=== PATIENT | male | born 1990 | race Caucasian/White ===

== ENCOUNTER 2019-12-23 14:13 | Emergency (ER) | payer OTHER, SELFPAY ==
--- NOTE | ~2019-12-23 | XR_ITS ---
EXAMINATION: XR foot LT min 3V EXAM DATE: 12/23/2019 16:33 INDICATION: Left foot pain, swelling, insect bite at metatarsals. TECHNIQUE: Left foot dorsoplantar, lateral and oblique projections obtained and reviewed. There is n o prior study for comparison. FINDINGS: Left metatarsal bones unremarkable. There are no acute fractures or dislocations identifi ed. There is no subcutaneous gas. Possible soft tissue swelling superomedially. There are no radio paque foreign bodies. There are no bony erosions identified. IMPRESSION: No acute osseous findings. Reviewed, dictated and finalized at location A. IMPRESSION: No acute osseous findings.
[2019-12-23 14:40] VITALS: BP 145/82; PULSE 87; RESP 16; TEMP 36.8; O2SAT 99
--- NOTE | 2019-12-23 16:16 | ED.SKABFB ---
HPI - Skin/Abscess/Foreign Bdy General Chief complaint: Skin/Abscess/Foreign Body Stated complaint: Cellulitis L foot Time Seen by Provider: 12/23/19 15:44 Source: patient Mode of arrival: ambulatory Limitations: no limitations History of Present Illness HPI narrative: This is a 29-year-old male that presents the emergency department for left foot swelling and redness x1 week. Reports he was seen in urgent care for this and started on cephalexin without relief. Denies fevers, decreased range of motion, or drainage. Related Data Allergies Allergy/AdvReac Type Severity Reaction Status Date / Time No Known Allergies Allergy Verified 12/23/19 14:47 Review of Systems Review of Systems: Narrative: CONSTITUTIONAL: Denies fever SKIN: Reports rash All systems reviewed & are unremarkable except as noted in HPI and below PMFSH Past Medical History Medical History (Updated 12/23/19 @ 17:48 by Lillian Alfaro PA-C) Cauda equina syndrome Social History Social History (Updated 03/15/19 @ 17:08 by Lillian Alfaro PA-C) Smoking status: Never smoker Substance use: never Gender identity (if verbalized by the patient): Male Exam Narrative: Exam Narrative: GENERAL: Well-appearing, well-nourished, and in no acute distress. HEAD: Normocephalic, atraumatic. EYES: EOMI. EXTREMITIES: Normal range of motion. Moderate edema to the dorsal surface left foot with mild redness. Normal DP pulses SKIN: Warm, dry, no rash. NEURO: No focal deficits. Alert and oriented x3. PSYCH: Normal mood and affect Course Vital Signs Vital signs: Vital Signs Temperature 98.3 F 12/23/19 14:40 Pulse Rate 87 12/23/19 14:40 Respiratory Rate 16 12/23/19 14:40 Blood Pressure 145/82 H 12/23/19 14:40 Pulse Oximetry 99 12/23/19 14:40 Temperature 98.3 F 12/23/19 14:40 Pulse Rate 87 12/23/19 14:40 Respiratory Rate 16 12/23/19 14:40 Blood Pressure 145/82 H 12/23/19 14:40 Pulse Oximetry 99 12/23/19 14:40 MDM - Skin/Abscess/Foreign Bdy MDM Narrative Medical decision making narrative: Patient presents the emergency department for cellulitis to the left foot. Has been on cephalexin for one week with some improvement, but without full relief. He is afebrile and nontoxic-appearing. CBC is without leukocytosis. Inflammatory markers are not elevated. D-dimer was also not elevated. X-ray of the left foot is normal. Patient will be tried on a different oral antibiotic to see if this gives him full relief. He is stable and felt appropriate for the outpatient evaluation. He is to follow-up with his primary care doctor. He was given warnings to return to the ER Lab Data Attestation: I reviewed the patient's lab results. Result diagrams: 12/23/19 16:18 12/23/19 16:18 Labs: Lab Results 12/23/19 12/23/19 12/23/19 Range/Units 16:18 16:18 16:18 WBC 7.7 (4.5-10.0) K/mm3 RBC 5.45 (4.6-6.20) M/mm3 Hgb 16.0 (14.0-18.0) g/dL Hct 45.2 (42.0-52.0) % MCV 82.9 (80-100) fl MCH 29.4 (26-34) pg MCHC 35.4 (32-36) g/dl RDW 11.8 (11.5-14.5) % Plt Count 292 (150-375) k/mm3 MPV 9.9 (7.4-10.4) fl Immature Gran % (Auto) 0.3 (0-0.5) % Neut % (Auto) 55.9 (45.5-73.1) % Lymph % (Auto) 29.6 (18.3-44.2) % [place] % (Auto) 9.5 H (2.6-8.5) % Eos % (Auto) 3.8 (0-4.4) % Baso % (Auto) 0.9 (0.2-1.2) % Lymph # (Auto) 2.28 (0.9-3.2) K/mm3 [place] # (Auto) 0.7 H (0.1-0.6) K/mm3 Eos # (Auto) 0.3 (0-0.3) K/mm3 Baso # (Auto) 0.1 (0.0-0.1) K/mm3 Abs Immat Gran (auto) 0.02 (0.00-0.031) K/mm3 Absolute Neuts (auto) 4.3 (1.3-6.7) K/mm3 Absolute Nucleated RBC 0.0 (0.0-0.012) K/mm3 Nucleated RBC % 0.0 (0.0-0.2) % ESR 9 (0-20) mm/hr PT 12.4 (11.1-14.7) Seconds INR 1.0 APTT 31.4 (22.3-36.8) SECONDS D-Dimer 0.27 (<0.48) ug/mL Sodium 141 (137-145) mmol/L Potassium 4.1 (3.4-5.0) mmo
[2019-12-23 16:25] LABS: Basophils Absolute Auto 0.1 K/mm3 (0.0-0.1); Basophils Percent Auto 0.9 % (0.2-1.2); Eosinophils Absolute Auto 0.3 K/mm3 (0-0.3); Eosinophils Percent Auto 3.8 % (0-4.4); Hematocrit 45.2 % (42.0-52.0); Immature Granulocyte Absolute 0.02 K/mm3 (0.00-0.031); Immature Granulocyte Percent A 0.3 % (0-0.5); Lymphocytes Absolute Auto 2.28 K/mm3 (0.9-3.2); Lymphocytes Percent Auto 29.6 % (18.3-44.2); Mean Corpuscular HGB Conc 35.4 g/dl (32-36); Mean Corpuscular Hemoglobin 29.4 pg (26-34); Mean Corpuscular Volume 82.9 fl (80-100); Mean Platelet Volume 9.9 fl (7.4-10.4); Monocytes Absolute Auto 0.7 K/mm3 (0.1-0.6); Monocytes Percent Auto 9.5 % (2.6-8.5); Neutrophils Absolute Auto 4.3 K/mm3 (1.3-6.7); Neutrophils Percent Auto 55.9 % (45.5-73.1); Platelet Count Result 292 k/mm3 (150-375); Red Blood Count 5.45 M/mm3 (4.6-6.20); Red Cell Distribution Width 11.8 % (11.5-14.5); White Blood Count 7.7 K/mm3 (4.5-10.0)
[2019-12-23 16:34] LABS: Prothrombin Time 12.4 Seconds (11.1-14.7)
[2019-12-23 16:35] LABS: Partial Thromboplastin Time 31.4 SECONDS (22.3-36.8)
[2019-12-23 16:38] LABS: Lactic Acid Reflex 0.9 mmol/L (0.7-2.1)
[2019-12-23 16:40] LABS: Anion Gap 9 mmol/L (8-16); Blood Urea Nitrogen 19 mg/dL (9-20); CRP < 0.5 mg/dL (<1.0); Calcium 9.1 mg/dL (8.4-10.2); Carbon Dioxide 25 mmol/L (22-30); Chloride 107 mmol/L (98-107); Estimated CRCL calculation 123 ml/min; Estimated Glomerular Filt Rate > 60; Glucose 95 mg/dL (75-110); Potassium 4.1 mmol/L (3.4-5.0); Sodium 141 mmol/L (137-145)
[2019-12-23 16:42] LABS: D Dimer 0.27 ug/mL (<0.48)
[2019-12-23 16:59] LABS: Erythrocyte Sedimentation Rate 9 mm/hr (0-20)
[2019-12-23 18:04] VITALS: BP 132/83; PULSE 70; RESP 16; TEMP 37.2; O2SAT 94
== END 2019-12-23 18:04 | disposition home or self-care (01) ==
PROVIDERS: Physician Assistant; Emergency Provider Emergency Medicine; PCP Physician Assistant
DX: L03.116 Cellulitis of left lower limb (principal)
CPT/HCPCS: 36415; 73630; 80048; 83605; 85025; 85380; 85610; 85652; 85730; 86140; 99283